=== PATIENT | female | born 1985 | race Caucasian/White ===

== ENCOUNTER 2023-01-31 17:16 | Emergency (ER) | payer MEDICAID, SELFPAY ==
[2023-01-31 17:56] LABS: Bilirubin Negative (Negative); Blood, Urine Negative (Negative); Glucose, Urine (Dipstick) Negative (Negative); Ketone, Urine Negative (Negative); Leukocyte Small (Negative); Nitrite Negative (Negative); Protein, Urine (Dipstick) Negative (Neg-Trace); Specific Gravity, Urine 1.025 (1.005-1.030)
[2023-01-31 17:57] LABS: Clarity Slightly Cloudy (Clear); Pregnancy Test - Urine (BHCG) Negative (Negative)
[2023-01-31 17:58] LABS: Pregu Control Background? CLEAR/WHITE (CLR/WHITE); Pregu Control Bar Appear? YES (CONTROL BAR); Specific Gravity 1.025 (1.002-1.036)
[2023-01-31 18:01] LABS: Bacteria/HPF Rare-Few HPF (None Seen); CAUTI Indications for Culture Dysuria,urgency,freq; Mucous/LPF 1+ LPF (<2+); RBC/HPF None Seen HPF (0-3); Squamous Epithelial 0-3 HPF (0-3); WBC/HPF Greater Than 50 HPF (0-3)
[2023-01-31 18:02] LABS: Urine Culture Reflex Yes Yes
== END 2023-01-31 18:24 | disposition home or self-care (01) ==
LOC: MADERS 17:16
DX: N39.0 Urinary tract infection, site not specified (principal); E03.9 Hypothyroidism, unspecified
CPT/HCPCS: 81001; 81025; 87086; 99283

== ENCOUNTER 2023-11-25 09:01 | Emergency (ER) | payer MEDICAID ==
[~2023-11-25 09:01] MED LIST: Iopamidol 370 76% 100 ML VIAL ONE
[2023-11-25] MEDS ORDERED: Ondansetron PF 4 MG/2 ML Vial ONE ×2 (09:26→11:15)
[2023-11-25] MEDS ORDERED: Morphine 4 MG/ML VIAL ONE (09:26)
[2023-11-25 10:02] LABS: #Eosinphils 0.1 thou/uL (0.0-0.7); #Lymphocytes 1.1 thou/uL (1.20-3.40); #Monocytes 0.6 thou/uL (0.11-0.59); #Neutrophils 5.3 thou/uL (1.40-6.50); %Basophils 0.7 % (0.0-1.0); %Lymphocytes 15.8 % (21.0-51.0); %Monocytes 8.3 % (0.0-10.0); %Neutrophils 74.2 % (42.0-75.0); ALT (SGPT) 14 U/L (8-55); AST (SGOT) 15 U/L (5-34); Albumin 3.9 g/dL (3.5-5.0); Alkaline Phosphatase 63 U/L (40-110); Anion Gap 12 mmol/L (10-20); BUN (Urea Nitrogen) 9 mg/dL (7.0-18.7); Bilirubin, Total 0.7 mg/dL (0.2-1.2); Calc. Creatinine Clearance 0 mL/min (70-130); Calcium 8.6 mg/dL (7.8-10.44); Carbon Dioxide 23 mmol/L (22-29); Chloride 110 mmol/L (98-107); Estimated GFR 111; Globulin 2.7 g/dL (2.4-3.5); Glucose 92 mg/dL (70-105); Hematocrit 30.2 % (36.0-47.0); Hemoglobin 8.5 g/dL (12.0-16.0); Hypochromia SLIGHT = 6-15 cells (100X) (0-5/hpf); MDiff Complete? YES; Mean Corpuscular HGB CONC 28.1 g/dL (32.0-36.0); Mean Corpuscular Hemoglobin 18.4 pg (27.0-31.0); Mean Corpuscular Volume 65.3 fl (78.0-98.0); Mean Platelet Volume 6.7 fL (7.4-10.4); Microcytosis SLIGHT = 6-15 cells (100X) (0-5/hpf); Platelet Adequacy Comment Appears Adequate; Platelet Count 226 10x3/uL (130-400); Potassium 3.9 mmol/L (3.5-5.1); Protein, Total 6.6 g/dL (6.0-8.3); RBC Distribution Width 15.7 % (11.5-14.5); Red Blood Cell (RBC) Count 4.63 mill/uL (4.20-5.40); Sodium 141 mmol/L (136-145); White Blood Cell (WBC) Count 7.1 10x3/uL (4.8-10.8)
[2023-11-25 10:10] LABS: Pregnancy Test - Urine (BHCG) Negative (Negative)
[2023-11-25 10:13] LABS: Pregu Control Background? CLEAR/WHITE (CLR/WHITE); Pregu Control Bar Appear? YES (CONTROL BAR)
[2023-11-25] MEDS ORDERED: fentaNYL 50 mcg/mL 1 mL Vial ONE (11:15)
[2023-11-25] MEDS ORDERED: Lidocaine 1% w/Epinephrine 1:100K 20 ML VIAL ONE (11:15)
[2023-11-25] MEDS ORDERED: Ampicillin/Sulbactam 3 GM VIAL ONE (12:16)
[2023-11-25] MEDS ORDERED: HYDROcodone/Acetaminophen 10/325 mg Tablet ONE (12:55)
== END 2023-11-25 14:15 | disposition short-term general hospital (02) ==
LOC: MADERS 09:01
DX: K12.2 Cellulitis and abscess of mouth (principal); R68.84 Jaw pain
CPT/HCPCS: 70487; 80053; 81025; 85025; 87070; 87077; 87205; 96365; 96375; 96376; J0295; J2270; J2405; J3010; Q9967

== ENCOUNTER 2024-02-20 10:17 | Emergency (ER) | payer MEDICAID, SELFPAY ==
[2024-02-20] MEDS ORDERED: Bicillin LA 1.2 MILLION UNITS/2 ML SYRINGE ONE (11:06)
[2024-02-20 11:30] LABS: Pregnancy Test - Urine (BHCG) Negative (Negative); Pregu Control Background? CLEAR/WHITE (CLR/WHITE); Pregu Control Bar Appear? YES (CONTROL BAR)
[2024-02-20 16:07] LABS: HIV (1/2) Antibody/Antigen NONREACTIVE (NonReactive); HIV 1/2 INDEX 0.06 S/CO (<1.00)
[2024-02-20 23:29] LABS: Syphilis Antibody Nonreactive (Nonreactive); Syphilis Antibody Index 0.09 S/CO (<1.00 Non-Reactive)
== END 2024-02-20 11:40 | disposition home or self-care (01) ==
LOC: MADERS 10:17
DX: N76.89 Other specified inflammation of vagina and vulva (principal); A53.9 Syphilis, unspecified; E03.9 Hypothyroidism, unspecified
CPT/HCPCS: 36415; 81025; 86780; 87389; 96372; 99283; J0561